=== PATIENT | female | born 1945 | race African-American/Black ===

== ENCOUNTER → 2017-04-22 | Day surgery (SDC) | payer OTHER ==
[~2017-04-22] VITALS: Ht 157.5 cm; Wt 69.3 kg
[~2017-04-22] MED LIST: ACETAMINOPHEN 1000 MG/100 ML 100 ML IV ONE; ACETAMINOPHEN/HYDROcodone 325 MG/5 MG TAB PO PRN; ALPR0.5T3 PO; BUPIVACAINE HCL PF 0.5% 30 ML VIAL ONE; CETI-14 PO; CHLORHEXIDINE GLUCONATE 2 % 1 PACK (2 CLOTHS) TOPICAL PRN; CIPR250T52 PO; CIPROFLOXACIN 400 MG PREMIX 200 ML IV SCH; CIPROFLOXACIN 400 MG PREMIX 200 ML ONE; DEXAMETHASONE SOD PHOS 4 MG/ML VIAL IV ONE; DEXAMETHASONE SOD PHOS 4 MG/ML VIAL ONE; DO NOT ADM ANY ANTICOAGULANT DRUGS PRN; FAMOTIDINE 20 MG/2 ML VIAL ONE; INSULIN HUMAN REGULAR 1,000 UNITS/10 ML VIAL SQ PRN; LACTATED RINGER'S 1000 ML INJ 1,000 ML IV ONE; LACTATED RINGER'S 1000 ML IV PRN; LEVO25TA4 PO; LIDOCAINE HCL 2% 50 ML VIAL ONE; MEPERIDINE HCL 50 MG/ML VIAL IM PRN; METOPROLOL TARTRATE 25 MG TAB PO PRN; METOPROLOL TARTRATE 5 MG/5 ML VIAL IV PUSH ONE; MIDAZOLAM HCL 2 MG/2 ML VIAL ONE; NEOMYCIN/POLYMYXIN 1 ML G.U. IRRIGANT IRRIGATION ONE; NORC5TAB PO; ONDANSETRON HCL 4 MG/2 ML VIAL IV PUSH ONE; POVIDONE IODINE 5% (ANTISEPSIS KIT) 4 APPLICATIONS EACH NARE PRN; PROPOFOL 200 MG/20 ML AMP IV ONE; SODIUM CHLORID 0.9% 500 ML IV PRN
[2017-04-22 09:52] LABS: AUTOMATED NEUTROPHIL # 3.1 TH/MM3 (1.8-7.7); BASOPHIL # 0.1 TH/MM3 (0-0.2); BASOPHIL % 1.3 % (0.0-2.0); EOSINOPHIL # 0.3 TH/MM3 (0-0.4); EOSINOPHIL % 4.9 % (0.0-4.0); HEMATOCRIT 39.4 % (35.0-46.0); HEMO FLAGS DIFF FINAL; LYMPH % 36.5 % (9.0-44.0); LYMPHOCYTE # 2.3 TH/MM3 (1.0-4.8); MEAN CELL VOLUME 80.8 FL (80.0-100.0); MEAN CORPUSCULAR HEMOGLOBIN 26.7 PG (27.0-34.0); MEAN CORPUSCULAR HGB CONC 33.1 % (32.0-36.0); MONO % 8.6 % (0.0-8.0); NEUT % 48.7 % (16.0-70.0); PLATELET COUNT 329 TH/MM3 (150-450); RED BLOOD COUNT 4.87 MIL/MM3 (4.00-5.30); RED CELL DISTRIBUTION WIDTH 16.1 % (11.6-17.2); WHITE BLOOD COUNT 6.3 TH/MM3 (4.0-11.0)
[2017-04-22 13:00] VITALS: BP 130/84; PULSE 62; RESP 16; TEMP 97.7; O2SAT 100
--- NOTE | 2017-04-22 13:34 | MP ---
cc: JASIEL MAYO III, M.D. DATE OF SURGERY 04/22/2017 PREOPERATIVE DIAGNOSIS Right fifth finger mass. PROCEDURE 1. Right fifth finger mass excisional biopsy. 2. Right fifth finger partial fingernail excision. SURGEON Jasiel Mayo III, MD PROCEDURE The patient was brought to the operating room, placed supine on the operating table. After the correct site and side of surgery were verified by members of each team in the room multiple times including the patient and myself and after adequate preoperative markings and preoperative written consent were verified by everyone and after adequate preoperative time-out was performed to everyone's satisfaction and after adequate IV sedation had been achieved, the right upper extremity was prepped and draped in the traditional sterile surgical fashion. A 50/50 mixture of 2% plain lidocaine and 0.5% plain Marcaine was infiltrated in the skin and subcutaneous tissue in the fourth web space at the metacarpal levels to provide for a fifth finger digital block. The two smallest fingers from a size 6-1/2 sterile glove were used to create a finger tourniquet which was placed on the fifth finger. The radial one-third of the fingernail was then sharply and easily removed. It was almost free-floating. A large inflammatory polypoid mass was then sharply excised from the nail bed which covered about one-half of the nail bed. It was excised in its entirety down to healthy tissue, but did cause significant compression of the tissue. There was no deep tissue such as bone exposed by any means. This was all passed off the field as a specimen. There were no other anatomic abnormalities identified. A half a liter of saline was then used to thoroughly flush out this wound. Xeroform was used to pack the wound which was left in place for 48 hours mainly for comfort. The finger tourniquet was released and the finger tip became immediately soft, pink and warm and brisk capillary refill. There was no active bleeding nor was there any open wounds anywhere. A bulky soft dressing was applied. The patient was awakened from anesthesia and transported to the Post Anesthesia Care Unit awake and in stable condition. The sponge, needle, and instrument counts were correct at the end of the case as reported by nurses in the room. MD CASANDRA Stiles III/BENY /11:45 AM /1:20 PM
--- NOTE | 2017-04-22 17:01 | EKG ---
Date Performed: 04/22/2017 Time Performed: 09:44:54 PTAGE: 71 years EKG: Sinus rhythm WITH SINUS ARRHYTHMIA NORMAL ECG NO PREVIOUS TRACING DOCTOR: Hannah Sparrow Interpretating Date/Time 04/22/2017 17:01:00
== END | disposition home or self-care (01) ==
LOC: HSDC 08:45
PROVIDERS: ATTEND Orthopaedic Surgery Hand Surgery
DX: C44.622 Squamous cell carcinoma of skin of right upper limb, including shoulder (principal); E03.9 Hypothyroidism, unspecified; F41.9 Anxiety disorder, unspecified; Z87.891 Personal history of nicotine dependence; Z79.899 Other long term (current) drug therapy
CPT/HCPCS: 00400; 11730; 26115; 85025; 88305; 93005; J0131; J1100; J2250; J7120; J0744; J2405; J3010

== ENCOUNTER → 2017-12-16 | Day surgery (SDC) | payer OTHER ==
[~2017-12-16] VITALS: Ht 157.5 cm; Wt 69.5 kg
[~2017-12-16] MED LIST changes: -ACETAMINOPHEN 1000 MG/100 ML 100 ML IV ONE; -ACETAMINOPHEN/HYDROcodone 325 MG/5 MG TAB PO PRN; +BUPIVACAINE HCL PF 0.5% 10 ML VIAL ONE; -BUPIVACAINE HCL PF 0.5% 30 ML VIAL ONE; -CIPROFLOXACIN 400 MG PREMIX 200 ML IV SCH; -CIPROFLOXACIN 400 MG PREMIX 200 ML ONE; +CIPROFLOXACIN/DEXT 200 MG/100 ML IV PRN; -DEXAMETHASONE SOD PHOS 4 MG/ML VIAL IV ONE; -DEXAMETHASONE SOD PHOS 4 MG/ML VIAL ONE; -DO NOT ADM ANY ANTICOAGULANT DRUGS PRN; +ESCI10TA PO; -FAMOTIDINE 20 MG/2 ML VIAL ONE; +FLUT50SP EACH NARE; +HYDR-3288 PO; -INSULIN HUMAN REGULAR 1,000 UNITS/10 ML VIAL SQ PRN; -LACTATED RINGER'S 1000 ML INJ 1,000 ML IV ONE; +LIDOCAINE 1%/EPINEPHrine 1:100,000 SOLN 30 ML VIAL ONE; -MEPERIDINE HCL 50 MG/ML VIAL IM PRN; -METOPROLOL TARTRATE 5 MG/5 ML VIAL IV PUSH ONE; +MINERAL OIL 10 ML VIAL ONE; -NEOMYCIN/POLYMYXIN 1 ML G.U. IRRIGANT IRRIGATION ONE; +NEOMYCIN/POLYMYXIN 1 ML G.U. IRRIGANT ONE; -NORC5TAB PO; -ONDANSETRON HCL 4 MG/2 ML VIAL IV PUSH ONE; -PROPOFOL 200 MG/20 ML AMP IV ONE
[2017-12-16 10:10] VITALS: BP 119/71; PULSE 61; RESP 16; TEMP 98; O2SAT 98
--- NOTE | 2017-12-16 10:15 | MP ---
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 PROCEDURE PERFORMED: Right fifth finger pain paronychial squamous cell carcinoma wide local excision with full-thickness skin graft. SURGEON: Jasiel Mayo MD DESCRIPTION OF PROCEDURE: The patient was brought to the operating room and placed supine on the operating table. After the correct site and side surgery was verified by members of each team in the room multiple times, including the patient and myself and after adequate preoperative markings and preoperative written consent was verified by everyone, after adequate preoperative timeout was performed to everyone's satisfaction and after adequate IV sedation had been achieved, the right upper extremity was prepped and draped in the usual sterile surgical fashion. A 50:50 mixture of 2% plain lidocaine and 0.5% plain Marcaine was infiltrated in the skin and subcutaneous tissue on the dorsal aspect of the fifth finger and in the fourth webspace. The limb was elevated and pressure held on the brachial artery for 1 minute and a highly placed well-padded axillary tourniquet was inflated to 200 mmHg for a total of 41 minutes. The radial half of the fifth fingernail was excised. The site of the previous, what appeared to be the origin of the mass, was used as the sensor point for measuring out 6-8 mm in a radial direction on all sides and then this was excised down to the fat layer deep to the dermis and was all passed off the field as a specimen with a double nylon suture at the distal margin and a single nylon suture at the radial margin. There did not appear to be any extension deep to the dermis grossly. The nail matrix on the radial side of the small finger was completely excised. Sterile water was then used to thoroughly irrigate out all the tissue. A full thickness skin graft was then harvested from the upper inner right arm and sutured into place using 4-0 chromic sutures. It was tailored to size, length and tension and the overall result was acceptable. This area was also irrigated with saline. Of note, clean gloves and clean instruments were used for this entire part of this procedure. The donor site was closed using deep 4-0 Vicryl sutures and then subcutaneous 4-0 Monocryl sutures. Mastisol and Steri-Strips were applied, followed by a Tegaderm dressing. The fingertip was wrapped with a conforming and molding bolster type of Xeroform dressing followed by a circumferential soft dressing in the usual fashion. The axillary tourniquet was released. The hand and all fingers on the right, including the index finger, became immediately soft, pink, and warm and had brisk capillary refill of less than 2 seconds. Sponge, needle, and instrument counts were correct at the end of the case as reported by nurses in the room. MD CASANDRA Stiles/KATHY , 09:46 AM , 10:14 AM
== END | disposition home or self-care (01) ==
LOC: PHSDC 06:01
PROVIDERS: ATTEND Orthopaedic Surgery Hand Surgery
DX: C44.92 Squamous cell carcinoma of skin, unspecified (principal); E03.9 Hypothyroidism, unspecified; F41.9 Anxiety disorder, unspecified
CPT/HCPCS: 01810; 15240; 26117; 88305; J0744; J2250; J3010; J7120